=== PATIENT | male | born 1970 | race Two or more races ===

== ENCOUNTER 2025-03-23 15:26 | Emergency (ER) | payer SELFPAY ==
[2025-03-23 15:43] VITALS: BP 105/75; PULSE 88; RESP 18; TEMP 36.9; O2SAT 99; BMI 25.2
--- NOTE | 2025-03-23 15:50 | PD.EDWOUND ---
ED Wound/Laceration-RME/HPI General Chief Complaint: Wound/Laceration Stated Complaint: LEFT FOOT LAC FROM CHAINSAW Time Seen by Provider: 03/23/25 15:48 Arrival date/time: 03/23/25 15:26 RME / HPI RME / HPI narrative: 54-year-old male patient with no significant past medical history, came in for evaluation regarding laceration to the left mid foot dorsal aspect, with a chainsaw, as patient sustained 7 cm gaping laceration, with inability to extend the great toe. Patient denies any other injury. Patient tetanus vaccination is unknown. Related Data Allergies Allergy/AdvReac Type Severity Reaction Status Date / Time No Known Allergies Allergy Verified 03/23/25 16:01 Review of Systems Review of Systems Narrative Review of Systems: Review of system reviewed and within normal limits except mentioned in HPI ED Exam Narrative Physical exam: VITAL SIGNS: Reviewed. GENERAL APPEARANCE: Alert and interactive, follows commands, no acute distress, HEAD AND FACE: Non-traumatic. ENT: PERRL, pink conjunctivitis, eyelid no trauma, Mucous membrane moist. NECK: Supple, nontender, no nuchal rigidity. RECTAL: Deferred. GENITAL: Deferred. NEUROLOGICAL: Gross motor function intact sensory function intact, Appropriate for age. MUSCULOSKELETAL: low back nontender, full range of motion. EXTREMITIES: +7 cm gaping laceration, right mid foot dorsal aspect, with inability to extend great toe SKIN: Color pink, dry, no rash, no lacerations, no abrasions, no contusions. LYMPHATICS: Deferred. Course Quality Measures none Orders Category Date Time Status Referral - [employer] Consultant Stat Cons 03/23/25 16:53 Active XR foot comp LT min 3V Stat Exams 03/23/25 15:53 Completed CBC [CBC] Stat Lab 03/23/25 16:53 Completed CMP [Comprehensive Metabolic Panel] Stat Lab 03/23/25 16:53 Completed PTT [Partial Thromboplastin Time] Stat Lab 03/23/25 16:53 Completed Amoxicillin/Pot Clav 875 [Augmentin 875] Med 03/23/25 15:49 Discontinued 1 tab PO X1 ONE Ketorolac Inj [Toradol Inj] Med 03/23/25 15:49 Discontinued 30 mg IM X1 ONE Lidocaine 1% 20 ml [Xylocaine 1% 20 ML] Med 03/23/25 15:49 Discontinued 10 ml INFL X1 ONE Morphine Inj Med 03/23/25 17:00 Discontinued 5 mg IM X1 ONE TET,DIP/PERT AC (Adult)-Tdap [Boostrix Adult (Tdap) Med 03/23/25 15:53 Discontinued Vacc] 0.5 ml IMI .ONCE ONE ceFAZolin/D5W 2 GM IV [Ancef 2gm Ivpb] Med 03/23/25 16:23 Discontinued 2 gm in 100 ml IV X1 Vital Signs Vital signs: Vital Signs Temperature 98.5 F 03/23/25 15:43 Pulse Rate 88 03/23/25 15:43 Respiratory Rate 18 03/23/25 15:43 Blood Pressure 105/75 03/23/25 15:43 Pulse Oximetry (%) 99 03/23/25 15:43 Oxygen Delivery Method Room Air 03/23/25 15:43 Wound / Laceration MDM Narrative MDM Narrative:: 54-year-old male patient with no significant past medical history, came in for evaluation regarding laceration to the left mid foot dorsal aspect, with a chainsaw, as patient sustained 7 cm gaping laceration, with inability to extend the great toe. Patient denies any other injury. Patient tetanus vaccination is unknown. X-ray of foot showed first metacarpal fracture,. Wound cleansed with NS, and wet-to-dry dressing applied Deric wrap applied. Capillary refill less than 2 seconds all toes Patient received IV Ancef, morphine, Toradol, Boostrix, Patient is to be transferred to higher level care. We do not have podiatry or orthopedic surgeon on-call today. Plan of care discussed with the patient. And agrees to be transferred. I discussed this case with Dr. Choudhary My ED director who told me to transfer this patient for definitive management of the open fracture of the metatarsal. With tendon involvement I spoke with Dr. Deras, manager athletics from, [facility] who told me that it is illegal to transfer this patient since we have a general surgeon. I spoke with general surgeon Dr. Melendrez, who told me that patient is to be transferred he does not take care of a broken bone or tendon involvement. Patient was accepted by Dr. Deras Patient data External records reviewed:: None Clinical information provided by:: patient and family Social determinants that could affect healthcare access:: none Patient has the following chronic illnesses:: None How is presenting disease/condition affected by chronic disease/condition?: no chronic disease Evaluation data The following diagnostics were reviewed and interpreted by me:: lab results and radiology exam(s) Lab and/or radiology exams considered but not ordered:: None Interpretation Summary: See resulted MDM Medications / Prescriptions Medications or Prescriptions considered but not ordered:: None Medication administrations:: Medication Administration History Discontinued Medications Amoxicillin/Clavulanate Potassium (Amoxicillin/Pot Clav 875 Tablet) 1 tab PO X1 ONE Stop: 03/23/25 15:50 Last Admin: 03/23/25 16:24 Dose: 1 tab Documented By: Diphtheria/Tetanus/Acell Pertussis (Diphth,Pertuss(Acell),Tet Vac 0.5 Ml Syr- Adult) 0.5 ml IMi .ONCE ONE Stop: 03/23/25 15:54 Last Admin: 03/23/25 16:25 Dose: 0.5 ml Documented By: Cefazolin Sodium (Ancef 2gm Ivpb) 2 gm in 100 mls @ 200 mls/hr IV X1 ONE Stop: 03/23/25 16:52 Ketorolac Tromethamine (Ketorolac Inj 60 Mg/2 Ml Vial) 30 mg IM X1 ONE Stop: 03/23/25 15:50 Last Admin: 03/23/25 16:26 Dose: 30 mg Documented By: Lidocaine HCl (Lidocaine Hcl 1% 20 Ml Vial) 10 ml INFL X1 ONE Stop: 03/23/25 15:50 Last Admin: 03/23/25 16:24 Dose: 10 ml Documented By: Morphine Sulfate (Morphine Sulf Inj 10 Mg/Ml Vial) 5 mg IM X1 ONE Stop: 03/23/25 17:01 Last Admin: 03/23/25 17:19 Dose: 5 mg Documented By: Boostrix, Ancef, Toradol morphine Consultations Consultation(s) initiated? (list below): Yes Consultation #1 (Physician, Specialty, Details): Dr. Melendrez, general surgeon on-call thank you Diagnosis Wound Differential Diagnosis: laceration and avulsion of skin Most likely diagnosis given after review of the tests above:: Foot laceration, with tendon involvement, and open fracture first metatarsal Admission Indicated Admission indicated?: indicated Explain why admission is indicated or not indicated:: Patient needs to be transferred to [facility] Admission Request Was there a request for admission?: No Disposition Plan Disposition Plan: Transfer Discharge Plan Plan Patient Disposition: [facility] Pt Being Transferred to: [facility] Prescriptions/Referrals Referrals: No Primary/Family,Physician [Primary Care Provider] - In 1 week Problem List Clinical Impression: Open displaced fracture of first metatarsal bone, Foot laceration involving tendon Patient/Caregiver Discharge Instructions Print Language: Sinhala Stand Alone Forms: [employer] Info., Patient Portal Info Letter
--- NOTE | 2025-03-23 15:53 | XR_ITS ---
Examination: Foot, left, 3 views Technique: AP, oblique, lateral views foot, 3 views Date and time of exam: March 23, 2025 1559 hours INDICATIONS: Chain saw injury to the foot today FINDINGS: Comminuted fractures entirely traversing the proximal first metatarsal, up to 8 mm separation at the main fracture site Bone fragments are displaced plantar at the fracture site, the largest displaced fracture fragment 9 mm IMPRESSION:. Severely comminuted fractures first metatarsal as above
[2025-03-23] MEDS: LIDOCAINE HCL 1% 20 ML VIAL 10 ML INFL (16:24)
[2025-03-23] MEDS: AMOXICILLIN/POT CLAV 875 TABLET 1 TAB PO (16:24)
[2025-03-23] MEDS: DIPHTH,PERTUSS(ACELL),TET VAC 0.5 ML SYR- ADULT IMi (16:25)
[2025-03-23] MEDS: KETOROLAC INJ 60 MG/2 ML VIAL 30 MG IM (16:26)
[2025-03-23 17:02] LABS: Basophils # (Auto) 0.1 Thou/mm3 (0.0-0.2); Basophils % (Auto) 1 % (0-2.5); Eosinophils # (Auto) 0.3 Thou/mm3 (0.0-0.5); Eosinophils % (Auto) 4 % (0-10); Hematocrit 37.1 % (41.0-53.0); Hemoglobin 13.6 g/dL (13.5-16.0); Immature Granulocytes % (Auto) 0 % (0-0); Immature Granulocytes Auto 0.03 Thou/mm3 (0.00-0.00); Lymphocytes # (Auto) 1.2 Thou/mm3 (1.0-4.8); Lymphocytes % (Auto) 16 % (10-50); Mean Corpuscular HGB Conc 36.7 g/dl (31.0-37.0); Mean Corpuscular Hemoglobin 31.3 pg (25.0-35.0); Mean Corpuscular Volume 85 fL (80-100); Monocytes # (Auto) 0.3 Thou/mm3 (0.0-0.8); Monocytes % (Auto) 5 % (0-12); Neutrophils # (Auto) 5.7 Thou/mm3 (1.8-7.7); Neutrophils % (Auto) 75 % (37-80); Nucleated Red Blood Cell % 0 /100 WBC (0); Platelet Count 140 Thou/mm3 (140-440); RDW Standard Deviation 39.9 fL (35.1-43.9); Red Blood Count 4.35 Miln/mm3 (4.50-5.90); White Blood Count 7.6 Thou/mm3 (3.8-10.6)
--- NOTE | 2025-03-23 17:07 | PC.CC ---
Addendum entered by Julia Keller RN 03/23/25 19:13: received call from [facility], informed them pt has been accepted to another facility. Addendum entered by Julia Keller RN 03/23/25 19:13: 1900: spoke to chargemaster specialist Sal, made aware of pick up and delivery driver time Addendum entered by Julia Keller RN 03/23/25 19:12: 1853: Transport referral sent. called and spoke to [facility] with [facility]. transport time of 1999. 181: transfer packet completed with [address] Bee signed ambulance form and transfer form. 175: received call from Alexa at [facility] and she stated to transfer patient and not an EMTALA Violation. Addendum entered by Julia Keller RN 03/23/25 19:08: 1732 spoke to Alexa at [facility], confirmed receipt of clinicals. Peer to peer attempted with ortho Dr. Yang but he stated this is for podiatry. Peer to peer initiated between Dr. Murillo (hand heel seat fitter) and LUKE Nieto. Dr. murillo accepted the patient however stated this is an EMTALA violation. He was informed we do not have vascular or ortho services, and gen surgery can not perform interventions needed. Case discussed with Dr. Choudhary and consulted with Dr. Melendrez and decision was made that transfer is still necessary. Contacted [facility] to discuss claim of EMTALA violation. Addendum entered by Julia Keller RN 03/23/25 18:13: 1722: Called Shira back and clinical doc faxed. 1717: called [facility], initiated call between LUKE Nieto the ED Dr. Chicas and he deemed not trauma. 1715: clinical docs sent to [facility]. Spoke to Shira at , she recommend we reach out the ed to activate a trauma. Original Note: 1707: clinical documents sent to [facility]. 1653: received notification for stat transfer for [facility] for ortho services for open fx foot with tendon involvement.
[2025-03-23] MEDS: MORPHINE SULF INJ 10 MG/ML VIAL 5 MG IM (17:19)
[2025-03-23 17:22] LABS: Alanine Aminotransferase 19 U/L (10-49); Albumin, Serum 4.1 gm/dL (3.5-5.0); Albumin/Globulin Ratio 1.7 (1.2-2.2); Alkaline Phosphatase 54 U/L (46-116); Anion Gap 11 (7-16); Aspartate Amino Transferase 17 U/L (0-34); BUN/Creatinine Ratio 13 Ratio (12-20); Bilirubin,Total 0.4 mg/dL (0.3-1.2); Blood Urea Nitrogen 15 mg/dL (9-23); Calcium 8.8 mg/dL (8.3-10.6); Calcium (Corrected) 8.8 mg/dL (8.5-10.1); Carbon Dioxide 23.1 mMol/L (20.0-31.0); Chloride 108 mMol/L (98-107); Creatinine (Component) 1.2 mg/dL (0.6-1.3); Estimated Creatinine Clearance 66.5 mL/min (>60); Globulin 2.4 gm/dL (2.3-3.5); Glucose 100 mg/dL (74-106); Osmolality,Calculated 283 (275-295); Potassium 3.6 mMol/L (3.4-5.1); Sodium 142 mMol/L (136-145); Total Protein 6.5 gm/dL (5.7-8.2); eGFR > 60 See Note
[2025-03-23 17:25] LABS: Partial Thromboplastin Time 24.6 Seconds (22.0-36.0)
[2025-03-23] MEDS: ceFAZolin/D5W 2 GM IV 2 GM/100 ML BAG IV (18:02)
--- NOTE | 2025-03-23 18:44 | PC.NURSE ---
Laceration to right mid foot from chain saw accident today, patient was wearing open toed footwear,, wound approx.. 14.4cm X 5.7cm wound is to the bone in areas, edges macerated, large amounts of serosanguineous drainage. Wound irrigated, sterile saline moistened kerlex to wound bed, kerlex to secure, then julissa wrap for compression to reduce bleeding. patient tolerated well.
[2025-03-23 19:13] VITALS: BP 121/82; PULSE 71; RESP 19; TEMP 36.4; O2SAT 97
--- NOTE | 2025-03-23 19:26 | PC.NURSE ---
Report for patient transfer given to [facility] @[id number]
== END 2025-03-23 19:50 | disposition short-term general hospital (02) ==
PROVIDERS: Nurse Practitioner Family; Emergency Provider Family Medicine
DX: S92.312B Displaced fracture of first metatarsal bone, left foot, initial encounter for open fracture (principal); W29.3XXA Contact with powered garden and outdoor hand tools and machinery, initial encounter; Z23 Encounter for immunization; Z75.1 Person awaiting admission to adequate facility elsewhere
CPT/HCPCS: 36415; 73630; 80053; 85025; 85730; 90471; 90715; 96365; 96372; 99285; J0689; J1885; J2270; J3490; A9270

== ENCOUNTER → 2025-06-07 | Outpatient (CLI) | payer BC, SELFPAY ==
--- NOTE | 2025-06-07 14:57 | XR_ITS ---
Examination: Foot, right, 3 views Technique: AP, oblique, lateral views foot, 3 views Date and time of exam: June 07, 2025 1524 hours Comparison March 23, 2025 INDICATIONS: Chainsaw injury to the first metatarsal February 21, 2025, postop reduction internal fixation at the main fracture site FINDINGS: Postop reduction internal fixation comminuted fractures mid first metatarsal with satisfactory alignment and early healing IMPRESSION: Suggest continued follow-up to document more complete healing of fractures midportion first metatarsal
== END | disposition home or self-care (01) ==
LOC: CDIM 14:48
PROVIDERS: PCP Internal Medicine; Referring Provider Podiatrist; Visit Provider Podiatrist
DX: S92.312A Displaced fracture of first metatarsal bone, left foot, initial encounter for closed fracture (principal); X58.XXXA Exposure to other specified factors, initial encounter
CPT/HCPCS: 73630

== ENCOUNTER → 2025-08-10 | Outpatient (CLI) | payer BC, SELFPAY ==
--- NOTE | 2025-08-10 09:08 | XR_ITS ---
Examination: Foot, left, 3 views Technique: AP, oblique, lateral views foot, 3 views Date and time of exam: August 10, 2025, 0933 hours, comparison June 07, 2025 INDICATIONS: Post foot surgery 5 months ago. FINDINGS: Status post operative reduction internal fixation fracture mid first metatarsal Fracture line is still evident IMPRESSION: Consider CT scan foot follow-up to exclude nonunion at the first metatarsal fracture site
== END | disposition home or self-care (01) ==
LOC: CDIM 08:56
PROVIDERS: Referring Provider Podiatrist; Visit Provider Podiatrist
DX: S92.302B Fracture of unspecified metatarsal bone(s), left foot, initial encounter for open fracture (principal); X58.XXXA Exposure to other specified factors, initial encounter; Z98.890 Other specified postprocedural states
CPT/HCPCS: 73630

== ENCOUNTER → 2025-09-21 | Outpatient (CLI) | payer BC, SELFPAY ==
--- NOTE | 2025-09-21 | XR_ITS ---
Examination: Foot, left, 3 views Technique: AP, oblique, lateral views foot, 3 views Date and time of exam: September 21, 2025, 0920 hours INDICATIONS: Acute comminuted fractures first metatarsal March 23, 2025 FINDINGS: Significant healing comminuted fractures first metatarsal with stable alignment compared with August 10, 2025 and June 07, 2025 Orthopedic hardware satisfactory position IMPRESSION: Significant healing comminuted fractures first metatarsal with stable alignment
== END | disposition home or self-care (01) ==
LOC: CDIM 08:18
PROVIDERS: Referring Provider Podiatrist; Visit Provider Podiatrist
DX: S92.312A Displaced fracture of first metatarsal bone, left foot, initial encounter for closed fracture (principal); X58.XXXA Exposure to other specified factors, initial encounter
CPT/HCPCS: 73630